=== PATIENT | female | born 1950 | race Caucasian/White ===

== ENCOUNTER 2017-04-16 14:59 | Day surgery (SDC) | payer MEDICARE, OTHER ==
[~2017-04-16] VITALS: Ht 152.4 cm; Wt 79.6 kg
[2017-04-16 15:32] VITALS: Ht 152.4 cm; Wt 79.6 kg
[2017-04-16] MEDS ORDERED: SIMV5TAB50 PO (15:38)
[2017-04-16] MEDS ORDERED: ENAL5TAB PO (15:38)
[2017-04-16] MEDS ORDERED: OMEP20CA16 PO (15:39)
[2017-04-16] MEDS ORDERED: ASPI-664 PO (15:40)
[2017-04-16 15:54] VITALS: BP 172/72; PULSE 73; RESP 15
[2017-04-16] MEDS ORDERED: FENTAnyl 50 MCG/ML VIAL ONE (16:44)
[2017-04-16] MEDS ORDERED: LIDOCAINE 2% (SDV) 5 ML INJ ONE (16:44)
[2017-04-16] MEDS ORDERED: PROPOFOL 40 ML ONE (16:44)
[2017-04-16 17:25] VITALS: BP 176/98; RESP 20
--- NOTE | 2017-05-14 06:49 | GILP ---
DATE OF PROCEDURE: 05/03/2017 PROCEDURE PERFORMED: Colonoscopy and biopsy. SURGEON: Edison Emerson MD. PREOP DIAGNOSIS: Screening colonoscopy. POSTOP DIAGNOSES: 1. Colonoscopy all the way to the cecum. 2. Two small colon polyps, removed using the biopsy forceps. 3. Internal hemorrhoids. INDICATION FOR THE PROCEDURE: Miss Lg Garcia is a 66- year-old female patient who had history of colon polyps. Patient also has a family history of colon cancer. The patient was scheduled for screening colonoscopy. The procedure and possible complications were well explained to the patient. The patient understood and consented to the procedure. DESCRIPTION OF PROCEDURE: The colonoscope was carefully introduced in the rectum. Under direct vision it was advanced all the way to the cecum. FINDINGS: The patient had 2 small colon polyps, and they were removed using the biopsy forceps. The patient was noted to have internal hemorrhoids. She tolerated the procedure very well. There was no complication from the procedure. At the end of procedure she was awake with stable vital signs and she was discharged home to the care of her family. IMPRESSION: 1. Colonoscopy all the way to the cecum. 2. Two small colon polyps were removed using the biopsy forceps. 3. Internal hemorrhoids. PLAN: 1. Await histopathology report. 2. Next screening colonoscopy in 5 years. Dictated By: MD VILLA Blanton/norma/juan /Document#: [id number]
== END 2017-04-17 08:28 | disposition home or self-care (01) ==
LOC: GIL 14:59
PROVIDERS: ATTEND Internal Medicine Gastroenterology
DX: Z12.11 Encounter for screening for malignant neoplasm of colon (principal); D12.6 Benign neoplasm of colon, unspecified; K64.8 Other hemorrhoids; I10 Essential (primary) hypertension; E78.5 Hyperlipidemia, unspecified; E66.9 Obesity, unspecified; Z68.34 Body mass index [BMI] 34.0-34.9, adult
CPT/HCPCS: 45380; 88305; J3010